=== PATIENT | female | born 1980 | race Caucasian/White ===

== ENCOUNTER 2018-08-13 15:24 | Emergency (ER) | payer OTHER ==
[2018-08-13] MEDS ORDERED: NA CHLORIDE 0.9% 1,000 ML ONE (16:46)
[2018-08-13 17:06] LABS: Absolute Lymphocytes (CBC) 2.5 K/uL (0.7-4.9); Absolute Monocytes 0.6 K/uL (0.1-1.3); Absolute Neutrophil 3.3 K/uL (1.8-8.0); Basophils % 0.8 % (0-1.3); Hematocrit 36.7 % (36.0-45.0); Lymphocytes % 36.1 % (15.3-44.8); MPV 7.9 fL (7.6-11.3); Monocytes % 9.2 % (3.3-12.3)
[2018-08-13 17:23] LABS: ALT/SGPT 15 U/L (12-78); AST/SGOT 13 U/L (15-37); Albumin 3.7 g/dL (3.4-5.0); Alkaline Phosphatase 47 U/L (45-117); BUN Blood Urea Nitrogen 8 mg/dL (7-18); Bicarbonate 27 mmol/L (21-32); Bilirubin Direct < 0.1 mg/dL (0-0.2); Bilirubin Total 0.2 mg/dL (0.2-1.0); Glucose Level 99 mg/dL (74-106); Lipase 85 U/L (73-393); Potassium 4.2 mmol/L (3.5-5.1); Protein, Total 6.7 g/dL (6.4-8.2); Sodium Level 141 mmol/L (136-145)
[2018-08-13] MEDS ORDERED: METHYLPREDNISOLONE 125 MG INJ ONE (17:48)
[2018-08-13] MEDS ORDERED: KETOROLAC 30 MG/ML INJ ONE (18:18)
[2018-08-13] MEDS ORDERED: FENTANYL CITR 100 MCG/2 ML ONE (18:43)
--- NOTE | 2018-08-13 19:01 | ER ---
Nurse's Notes [facility] Name: Charito Hansen Age: 38 yrs Sex: Female : 1980 Arrival Date: 08/13/2018 Time: 15:25 Bed 24 Private MD: None, None Diagnosis: Pain in joint Presentation: 08/13 15:43 Presenting complaint: Patient states: my lupus and my RA is really kicking my butt, i tw2 was finally able to get some of my medicine. Transition of care: patient was not received from another setting of care. Onset of symptoms was August 13, 2018. Risk Assessment: Do you want to hurt yourself or someone else? Patient reports no desire to harm self or others. Initial Sepsis Screen: Does the patient meet any 2 criteria? No. Patient's initial sepsis screen is negative. Does the patient have a suspected source of infection? No. Patient's initial sepsis screen is negative. Care prior to arrival: None. 15:43 Method Of Arrival: Ambulatory tw2 15:43 Acuity: TAMELA 3 tw2 Triage Assessment: 15:45 General: Appears in no apparent distress. Behavior is crying. Pain: Complains of pain tw2 in all over. 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 - Social history:: Smoking status: Patient/guardian denies using tobacco, Smoking status: Patient uses tobacco products, smokes one-half pack cigarettes per day. - Ebola Screening: : Patient denies travel to an Ebola-affected area in the 21 days before illness onset. Screenin:20 Abuse screen: Denies threats or abuse. Denies injuries from another. Nutritional ca1 screening: No deficits noted. Tuberculosis screening: No symptoms or risk factors identified. Fall Risk None identified. Assessment: 16:20 General: Appears in no apparent distress. ill, Behavior is calm, cooperative, ca1 appropriate for age. 16:20 Pain: Complains of pain in all over. Pt states she feels like a paper being crumpled ca1 and thrown away Pain currently is 8 out of 10 on a pain scale. Pain began 1 day ago. Neuro: Level of Consciousness is awake, alert, obeys commands, Oriented to person, place, time, situation. Cardiovascular: Heart tones S1 S2 present Capillary refill < 3 seconds Patient's skin is warm and dry. Respiratory: Airway is patent Respiratory effort is even, unlabored, Respiratory pattern is regular, symmetrical, Breath sounds are coarse bilaterally. GI: Abdomen is flat, non-distended, Bowel sounds present X 4 quads. Abd is soft and non tender X 4 quads. : No signs and/or symptoms were reported regarding the genitourinary system. EENT: No signs and/or symptoms were reported regarding the EENT system. Derm: Skin is intact, is healthy with good turgor, Skin is pink, warm \T\ dry. Musculoskeletal: Circulation, motion, and sensation intact. Capillary refill < 3 seconds. 17:20 Reassessment: Patient appears in no apparent distress at this time. Patient and/or ca1 family updated on plan of care and expected duration. Pain level reassessed. Patient is alert, oriented x 3, equal unlabored respirations, skin warm/dry/pink. 18:23 Reassessment: Patient appears in no apparent distress at this time. Patient and/or ca1 family updated on plan of care and expected duration. Pain level reassessed. Patient is alert, oriented x 3, equal unlabored respirations, skin warm/dry/pink. Vital Signs: 15:44 BP 97 / 62; Pulse 88; Resp 17; Temp 97.8(TE); Pulse Ox 99% on R/A; Weight 62.6 kg (R); tw2 Height 5 ft. 7 in. (170.18 cm); Pain 9/10; 16:30 BP 96 / 65; Pulse 83; Resp 18; Pulse Ox 100% on R/A; ca1 17:20 BP 99 / 65; Pulse 75; Resp 19; Pulse Ox 100% on R/A; ca1 18:23 BP 100 / 68; Pulse 72; Resp 19; Pulse Ox 100% on R/A; ca1 15:44 Body Mass Index 21.61 (62.60 kg, 170.18 cm) tw2 ED Course: 15:25 Patient arrived in ED. dl4 15:25 None, None is Private Physician. dl4 15:44 Triage completed. tw2 15:45 Arm band placed on. tw2 16:12 Tanner Ames PA is PHCP. [facility] 16:12 Clinton Azevedo MD is Attending Physician. [facility] 16:18 Tuyet Guzman, DIMITRIOS is Primary Nurse. ca1 16:20 Patient has correct armband on for positive identification. Placed in gown. Bed in low ca1 position. Call light in reach. Side rails up X 1. Pulse ox on. NIBP on. Warm blanket given. 16:38 No provider procedures requiring assistance completed. Inserted saline lock: 20 gauge ca1 in left antecubital area, using aseptic technique. Blood collected. 19:16 IV discontinued, intact, bleeding controlled, No redness/swelling at site. Pressure ca1 dressing applied. Administered Medications: 16:40 Drug: NS 0.9% 1000 ml Route: IV; Rate: 1 bolus; Site: left antecubital; ca1 18:27 Follow up: Response: No adverse reaction; IV Status: Completed infusion ca1 17:36 Drug: SOLU-Medrol 125 mg Route: IVP; Site: left antecubital; ca1 18:28 Follow up: Response: No adverse reaction ca1 18:06 Drug: Ketorolac 30 mg Route: IVP; Site: left antecubital; ca1 18:39 Follow up: Response: No adverse reaction; Pain is unchanged, physician notified ca1 18:35 Drug: fentaNYL (PF) 50 mcg Route: IVP; Site: left antecubital; ca1 19:16 Follow up: Response: No adverse reaction; Pain is decreased ca1 Outcome: 19:00 Discharge ordered by . poly 19:15 Discharged to home ambulatory. ca1 19:15 Condition: stable 19:15 Discharge instructions given to patient, Instructed on discharge instructions, follow up and referral plans. medication usage, Demonstrated understanding of instructions, follow-up care, medications, Prescriptions given X 2. 19:16 Patient left the ED. ca1 Signatures: Tanner Ames PA PA Kim Munguia RN RN tw2 Richi Bolivar dl4 Tuyet Guzman, RN RN ca1
--- NOTE | 2018-08-13 19:01 | EDPHYS ---
Physician Documentation [facility] Name: Charito Hansen Age: 38 yrs Sex: Female : 1980 Arrival Date: 08/13/2018 Time: 15:25 Bed 24 Private MD: None, None ED Physician Clinton Azevedo HPI: 08/13 16:23 This 38 yrs old Female presents to ER via Ambulatory with complaints of Pain [facility] All Over. 16:23 This is a 38 year old female with a history of lupus, migraines, RA that presents to [facility] the ED with generalize body aches she attributes to RA. patient states she ran out of prednisone 2 week ago. patient denies fever, denies weakness, denies shortness of breath, denies chest pain. . Onset: The symptoms/episode began/occurred just prior to arrival, 2 day(s) ago. The patient has experienced similar episodes in the past. 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 - Social history:: Smoking status: Patient/guardian denies using tobacco, Smoking status: Patient uses tobacco products, smokes one-half pack cigarettes per day. - Ebola Screening: : Patient denies travel to an Ebola-affected area in the 21 days before illness onset. ROS: 16:23 Constitutional: Negative for fever, chills, and weight loss, Cardiovascular: Negative [facility] for chest pain, palpitations, and edema, Respiratory: Negative for shortness of breath, cough, wheezing, and pleuritic chest pain. 16:23 MS/extremity: Positive for pain. 16:23 All other systems are negative. Exam: 16:23 Head/Face: atraumatic. Eyes: EOMI, no conjunctival erythema appreciated ENT: Moist jmm Mucus Membranes Neck: Trachea midline, Supple Chest/axilla: Normal chest wall appearance and motion. Cardiovascular: Regular rate and rhythm. No edema appreciated 16:23 Abdomen/GI: Non distended, soft Back: Normal ROM Skin: General appearance color normal MS/ Extremity: Moves all extremities, no obvious deformities appreciated, no edema noted to the lower extremities Neuro: Awake and alert, normal gait Psych: Behavior is normal, Mood is normal, Patient is cooperative and pleasant 16:23 Constitutional: The patient appears alert, awake, uncomfortable. 16:23 Cardiovascular: Rate: normal, Rhythm: regular. 16:23 Respiratory: the patient does not display signs of respiratory distress, Respirations: normal, Breath sounds: are clear throughout. Vital Signs: 15:44 BP 97 / 62; Pulse 88; Resp 17; Temp 97.8(TE); Pulse Ox 99% on R/A; Weight 62.6 kg (R); tw2 Height 5 ft. 7 in. (170.18 cm); Pain 9/10; 16:30 BP 96 / 65; Pulse 83; Resp 18; Pulse Ox 100% on R/A; ca1 17:20 BP 99 / 65; Pulse 75; Resp 19; Pulse Ox 100% on R/A; ca1 18:23 BP 100 / 68; Pulse 72; Resp 19; Pulse Ox 100% on R/A; ca1 15:44 Body Mass Index 21.61 (62.60 kg, 170.18 cm) tw2 MDM: 16:23 Patient medically screened. [facility] 19:00 Data reviewed: vital signs, nurses notes. Counseling: I had a detailed discussion with [facility] the patient and/or guardian regarding: the historical points, exam findings, and any diagnostic results supporting the discharge/admit diagnosis, lab results, the need for outpatient follow up, to return to the emergency department if symptoms worsen or persist or if there are any questions or concerns that arise at home. ED course: Patient is alert and non toxic in appearance in the ED. Symptoms are alleviated in the ED. Symptoms appear consistent with RA/Lupus flare. Patient will follow up with her histologist for further evaluation and is otherwise advised to return to the ED if symptoms worsen. Patient states her BP is normally on the low end of normal. . 08/13 16:27 Order name: Basic Metabolic Panel; Complete Time: 17:27 [facility] 08/13 16:27 Order name: CBC with Diff; Complete Time: 17:10 [facility] 08/13 16:27 Order name: Creatinine for Radiology; Complete Time: 17:27 [facility] 08/13 16:27 Order name: Hepatic Function; Complete Time: 17:27 [facility] 08/13 16:27 Order name: Lipase; Complete Time: 17:27 [facility] 08/13 17:35 Order name: Urine Dipstick--Ancillary (enter results) em1 08/13 16:27 Order name: IV Saline Lock; Complete Time: 16:51 [facility] 08/13 16:27 Order name: Labs collected and sent; Complete Time: 16:51 [facility] 08/13 16:27 Order name: Urine Dipstick-Ancillary (obtain specimen); Complete Time: 17:33 [facility] 08/13 17:35 Order name: Urine --Ancillary (enter results) em Administered Medications: 16:40 Drug: NS 0.9% 1000 ml Route: IV; Rate: 1 bolus; Site: left antecubital; ca1 18:27 Follow up: Response: No adverse reaction; IV Status: Completed infusion ca1 17:36 Drug: SOLU-Medrol 125 mg Route: IVP; Site: left antecubital; ca1 18:28 Follow up: Response: No adverse reaction ca1 18:06 Drug: Ketorolac 30 mg Route: IVP; Site: left antecubital; ca1 18:39 Follow up: Response: No adverse reaction; Pain is unchanged, physician notified ca1 18:35 Drug: fentaNYL (PF) 50 mcg Route: IVP; Site: left antecubital; ca1 19:16 Follow up: Response: No adverse reaction; Pain is decreased ca1 Disposition: 08/14 07:29 Co-signature as Attending Physician, Clinton Azevedo MD I agree with the assessment and kdr plan of care. Disposition: 08/13/18 19:00 Discharged to Home. Impression: Pain in joint. - Condition is Stable. - Discharge Instructions: Rheumatoid Arthritis. - Prescriptions for Ultracet 37.5- 325 mg Oral Tablet - take 1 tablet by ORAL route every 6 hours - for up to 5 days; do not exceed 8 tablets per day.; 12 tablet. Medrol (Bam) 4 mg Oral Tablets, Dose Pack - take 1 tablet by ORAL route as directed - follow package instructions; 1 packet. - Medication Reconciliation Form, Thank You Letter, Antibiotic Education, Prescription Opioid Use, Work release form form. - Follow up: Private Physician; When: 2 - 3 days; Reason: Recheck today's complaints, Continuance of care, Re-evaluation by your physician. Signatures: Dispatcher [employer] EDMS Clinton Azevedo MD MD kdr Mickail, Joel, PA PA jmm Wise, Tara, RN RN tw2 Tuyet Guzman RN RN ca1 Corrections: (The following items were deleted from the chart) 08/13 19:16 19:00 08/13/2018 19:00 Discharged to Home. Impression: Pain in joint. Condition is ca1 Stable. Forms are Medication Reconciliation Form, Thank You Letter, Antibiotic Education, Prescription Opioid Use. Follow up: Private Physician; When: 2 - 3 days; Reason: Recheck today's complaints, Continuance of care, Re-evaluation by your physician. poly
[2018-08-13 19:22] VITALS: TEMP 97.8
[2018-08-13 19:23] VITALS: O2SAT 100
[2018-08-13 19:23] LABS: Urine Blood TRACE (NEG); Urine Glucose NEGATIVE (NEG); Urine Protein NEGATIVE (NEG); Urine Specific Gravity 1.015 (1.005-1.030)
[2018-08-13 19:25] VITALS: BP 100/68
== END 2018-08-13 19:16 | disposition home or self-care (01) ==
LOC: ER 15:24
DX: M25.50 Pain in unspecified joint (principal); M06.9 Rheumatoid arthritis, unspecified; F17.210 Nicotine dependence, cigarettes, uncomplicated
CPT/HCPCS: 36415; 80048; 80076; 81003; 81025; 83690; 85025; 96361; 96374; 96375; 99284; J2930; J3010; J7030

== ENCOUNTER 2018-09-15 14:31 | Emergency (ER) | payer OTHER, SELFPAY ==
[2018-09-15 15:10] LABS: Urine Blood NEGATIVE (NEG); Urine Glucose NEGATIVE (NEG); Urine Protein NEGATIVE (NEG); Urine Specific Gravity 1.015 (1.005-1.030); Urine pH 7.5 (5.0-7.0)
--- NOTE | 2018-09-15 16:05 | EDPHYS ---
Physician Documentation [facility] Name: Charito Hansen Age: 38 yrs Sex: Female : 1980 Arrival Date: 09/15/2018 Time: 14:35 Bed 24 Private MD: None, None ED Physician Pradeep Zhang HPI: 09/15 16:01 This 38 yrs old Female presents to ER via Ambulatory with complaints of rosalva Trouble Walking, Feet Pain. Historical: - Allergies: 14:38 No Known Allergies; ss - PMHx: 14:38 Lupus; Migraines; Rheumatoid Arthritis; ss - PSHx: 14:38 ; Tubal ligation; ss - Immunization history:: Adult Immunizations unknown. - Social history:: Smoking status: Patient uses tobacco products, smokes one-half pack cigarettes per day. - Ebola Screening: : Patient denies exposure to infectious person Patient denies travel to an Ebola-affected area in the 21 days before illness onset. ROS: 16:01 Constitutional: Negative for fever, chills, and weight loss, Eyes: Negative for injury, rosalva pain, redness, and discharge, ENT: Negative for injury, pain, and discharge, Neck: Negative for injury, pain, and swelling, Cardiovascular: Negative for chest pain, palpitations, and edema, Respiratory: Negative for shortness of breath, cough, wheezing, and pleuritic chest pain, Abdomen/GI: Negative for abdominal pain, nausea, vomiting, diarrhea, and constipation, Back: Negative for injury and pain, : Negative for injury, bleeding, discharge, and swelling, Skin: Negative for injury, rash, and discoloration, Neuro: Negative for headache, weakness, numbness, tingling, and seizure, Psych: Negative for depression, anxiety, suicide ideation, homicidal ideation, and hallucinations, Allergy/Immunology: Negative for hives, rash, and allergies, Endocrine: Negative for neck swelling, polydipsia, polyuria, polyphagia, and marked weight changes, Hematologic/Lymphatic: Negative for swollen nodes, abnormal bleeding, and unusual bruising. 16:01 MS/extremity: Positive for decreased range of motion, pain, tenderness, of the right foot and left foot. Exam: 16:01 Constitutional: This is a well developed, well nourished patient who is awake, alert, rosalva and in no acute distress. Head/Face: Normocephalic, atraumatic. Eyes: Pupils equal round and reactive to light, extra-ocular motions intact. Lids and lashes normal. Conjunctiva and sclera are non-icteric and not injected. Cornea within normal limits. Periorbital areas with no swelling, redness, or edema. ENT: Nares patent. No nasal discharge, no septal abnormalities noted. Tympanic membranes are normal and external auditory canals are clear. Oropharynx with no redness, swelling, or masses, exudates, or evidence of obstruction, uvula midline. Mucous membranes moist. Neck: Trachea midline, no thyromegaly or masses palpated, and no cervical lymphadenopathy. Supple, full range of motion without nuchal rigidity, or vertebral point tenderness. No Meningismus. Chest/axilla: Normal chest wall appearance and motion. Nontender with no deformity. No lesions are appreciated. Cardiovascular: Regular rate and rhythm with a normal S1 and S2. No gallops, murmurs, or rubs. Normal PMI, no JVD. No pulse deficits. Respiratory: Lungs have equal breath sounds bilaterally, clear to auscultation and percussion. No rales, rhonchi or wheezes noted. No increased work of breathing, no retractions or nasal flaring. Abdomen/GI: Soft, non-tender, with normal bowel sounds. No distension or tympany. No guarding or rebound. No evidence of tenderness throughout. Back: No spinal tenderness. No costovertebral tenderness. Full range of motion. Skin: Warm, dry with normal turgor. Normal color with no rashes, no lesions, and no evidence of cellulitis. Neuro: Awake and alert, GCS 15, oriented to person, place, time, and situation. Cranial nerves II-XII grossly intact. Motor strength 5/5 in all extremities. Sensory grossly intact. Cerebellar exam normal. Normal gait. Psych: Awake, alert, with orientation to person, place and time. Behavior, mood, and affect are within normal limits. 16:01 Musculoskeletal/extremity: ROM: limited active range of motion due to pain, limited passive range of motion due to pain, Circulation is intact in all extremities. Sensation intact. Compartment Syndrome exam of affected extremity: is normal. DVT Exam: no swelling, negative Homans' sign noted on exam, no appreciated bluish discoloration, no erythema, no increased warmth, pain, tenderness. Vital Signs: 14:38 BP 118 / 72; Pulse 111; Resp 16; Temp 98.4(TE); Pulse Ox 97% on R/A; Weight 62.6 kg; ss Height 5 ft. 7 in. (170.18 cm); Pain 7/10; 14:38 Body Mass Index 21.61 (62.60 kg, 170.18 cm) MDM: 15:02 Patient medically screened. [facility] 16:12 Data reviewed: vital signs, nurses notes. [facility] 09/15 14:53 Order name: Urine Dipstick--Ancillary (enter results); Complete Time: 16:00 bd 09/15 14:53 Order name: Urine --Ancillary (enter results); Complete Time: 16:00 bd Administered Medications: 16:07 Drug: Motrin 600 mg Route: PO; aj1 16:25 Follow up: Response: Pain is decreased rv Disposition: 09/15/18 16:04 Discharged to Home. Impression: Lupus erythematosus, Pain in foot and toes. - Condition is Stable. - Discharge Instructions: Systemic Lupus Erythematosus, Adult, Rheumatoid Arthritis. - Prescriptions for Tylenol- Codeine #3 300-30 mg Oral Tablet - take 2 tablets by ORAL route every 6 hours As needed; 26 tablet. Motrin IB 200 mg Oral Tablet - take 2 tablet by ORAL route every 6 hours As needed as needed with food; 30 tablet. - Work release form, Medication Reconciliation Form, Thank You Letter, Antibiotic Education, Prescription Opioid Use form. - Follow up: Private Physician; When: 2 - 3 days; Reason: Recheck today's complaints, Continuance of care, Re-evaluation by your physician. Follow up: Olivier Boles MD; When: 2 - 3 days; Reason: Recheck today's complaints, Continuance of care, Re-evaluation by your physician. - Problem is new. - Symptoms have improved. Signatures: Dispatcher [employer] Tejal Santos RN RN aj1 Pradeep Zhang MD MD cha Smirch, Shelby, RN RN ss Scott Wilkinson RN RN rv Corrections: (The following items were deleted from the chart) 16:26 16:04 09/15/2018 16:04 Discharged to Home. Impression: Lupus erythematosus; Pain in rv foot and toes. Condition is Stable. Forms are Medication Reconciliation Form, Thank You Letter, Antibiotic Education, Prescription Opioid Use. Follow up: Private Physician; When: 2 - 3 days; Reason: Recheck today's complaints, Continuance of care, Re-evaluation by your physician. Follow up: Olivier Boles; When: 2 - 3 days; Reason: Recheck today's complaints, Continuance of care, Re-evaluation by your physician. Problem is new. Symptoms have improved. rosalva
--- NOTE | 2018-09-15 16:05 | ER ---
Nurse's Notes [facility] Name: Charito Hansen Age: 38 yrs Sex: Female : 1980 Arrival Date: 09/15/2018 Time: 14:35 Bed 24 Private MD: None, None Diagnosis: Lupus erythematosus;Pain in foot and toes Presentation: 09/15 14:36 Presenting complaint: Patient states: bilateral foot pain that began 2-3 days ago that ss has gotten worse. Pt reports that pain is more concentrated to the joints of her toes, especially on the L foot. Transition of care: patient was not received from another setting of care. Onset of symptoms was September 12, 2018. Risk Assessment: Do you want to hurt yourself or someone else? Patient reports no desire to harm self or others. Initial Sepsis Screen: Does the patient meet any 2 criteria? No. Patient's initial sepsis screen is negative. Does the patient have a suspected source of infection? No. Patient's initial sepsis screen is negative. Care prior to arrival: None. 14:36 Method Of Arrival: Ambulatory ss 14:36 Acuity: TAMELA 4 ss Historical: - Allergies: 14:38 No Known Allergies; ss - PMHx: 14:38 Lupus; Migraines; Rheumatoid Arthritis; ss - PSHx: 14:38 ; Tubal ligation; ss - Immunization history:: Adult Immunizations unknown. - Social history:: Smoking status: Patient uses tobacco products, smokes one-half pack cigarettes per day. - Ebola Screening: : Patient denies exposure to infectious person Patient denies travel to an Ebola-affected area in the 21 days before illness onset. Screenin:16 Abuse screen: Denies threats or abuse. Denies injuries from another. Nutritional aj1 screening: No deficits noted. Tuberculosis screening: No symptoms or risk factors identified. 16:25 Fall Risk None identified. rv Assessment: 15:16 General: Appears in no apparent distress. uncomfortable, Behavior is cooperative, aj1 anxious. Pain: Complains of pain in right foot and left foot. Neuro: Level of Consciousness is awake, alert, obeys commands, Oriented to person, place, time, situation. Cardiovascular: Patient's skin is warm and dry. Respiratory: Airway is patent Respiratory effort is even, unlabored, Respiratory pattern is regular, symmetrical. GI: No signs and/or symptoms were reported involving the gastrointestinal system. : No signs and/or symptoms were reported regarding the genitourinary system. EENT: No signs and/or symptoms were reported regarding the EENT system. Derm: Skin is pink, warm \T\ dry. normal. Musculoskeletal: Range of motion: limited in bilateral toes. Vital Signs: 14:38 BP 118 / 72; Pulse 111; Resp 16; Temp 98.4(TE); Pulse Ox 97% on R/A; Weight 62.6 kg; ss Height 5 ft. 7 in. (170.18 cm); Pain 7/10; 14:38 Body Mass Index 21.61 (62.60 kg, 170.18 cm) ED Course: 14:35 Patient arrived in ED. mr 14:35 None, None is Private Physician. mr 14:37 Triage completed. 14:38 Arm band placed on left wrist. 14:54 Tejal Gatica, RN is Primary Nurse. [facility] 15:02 Pradeep Zhang MD is Attending Physician. [facility] 15:16 Patient has correct armband on for positive identification. Bed in low position. Call aj1 light in reach. Side rails up X 1. 15:16 No provider procedures requiring assistance completed. [facility] 16:02 Olivier Boles MD is Referral Physician. [facility] 16:25 Patient did not have IV access during this emergency room visit. rv Administered Medications: 16:07 Drug: Motrin 600 mg Route: PO; [facility] 16:25 Follow up: Response: Pain is decreased rv Outcome: 16:04 Discharge ordered by . [facility] 16:25 Discharged to home ambulatory. rv 16:25 Condition: good 16:25 Discharge instructions given to patient, Instructed on discharge instructions, follow up and referral plans. medication usage, Demonstrated understanding of instructions, follow-up care, medications, Prescriptions given X 2. 16:26 Patient left the ED. rv Signatures: Tejal Gatica, RN RN aj Pradeep Zhang MD MD cha Rivera, Mary mr Smirch, Shelby, DIMITRIOS PLUNKETT Scott Wilkinson RN RN rv
[2018-09-15] MEDS ORDERED: IBUPROFEN 400 MG TAB ONE (16:16)
[2018-09-15] MEDS ORDERED: IBUPROFEN 200 MG TAB PO ONE (16:16)
[2018-09-15 16:31] VITALS: BP 118/72; TEMP 98.4; O2SAT 97
== END 2018-09-15 16:26 | disposition home or self-care (01) ==
LOC: ER 14:31
DX: L93.0 Discoid lupus erythematosus (principal); M79.671 Pain in right foot; F17.210 Nicotine dependence, cigarettes, uncomplicated
CPT/HCPCS: 81003; 81025; 99283